=== PATIENT | male | born 1940 | race Caucasian/White ===

== ENCOUNTER 2018-07-29 15:06 | Inpatient (IN) ==
--- NOTE | 2018-07-29 15:37 | Emergency Department Note ---
Disposition Clinical Impression: Atrial flutter with rapid ventricular response, Non-ST elevation [place] (NSTEMI) Disposition: Admitted As Inpatient Condition: Fair Referrals: Abrahan Pleitez MD [Primary Care Provider] - Forms: ED Satisfaction Letter Time of Disposition: 16:12 Arrhythmia/Palpitations HPI - General Chief Complaint: ED Arrhythmia/Palpitations Stated Complaint: CP Time Seen by Provider: 07/29/18 15:12 Source: patient, family Mode of arrival: private vehicle Limitations: no limitations Nursing Notes Reviewed: Yes Vital Signs Reviewed: Yes - History of Present Illness HPI Narrative: Patient notes resting tachycardia for the past several days. He has a history of a supraventricular arrhythmia of unknown name. He takes a beta cristina as prescribed by Dr. Barboza, cardiology for this. He notes some mild chest discomfort radiating to his left arm. Symptoms have been present for 3 days. He also notes atraumatic left lower extremity swelling which is at baseline as well as baseline dyspnea due to end-stage oxygen-dependent COPD Pt Subjective Complaint: rapid heart beat, palpitations Onset (ago): day(s) Duration: constant Context: occurred during rest Arrhythmia History: other (History of uncertain arrhythmia) Associated symptoms: Reports: chest pain, shortness of breath (At baseline due to end-stage COPD) Treatments prior to arrival: beta-cristina - Related Data Home Medications Medication Instructions Recorded Confirmed ALPRAZolam [Xanax 1 MG Tablet] 1 mg PO HS 02/09/18 02/09/18 Budesonide Neb [Pulmicort Neb] 0.5 mg IH BID 02/09/18 02/09/18 Doxazosin Mesylate [Cardura] 2 mg PO DAILY 02/09/18 02/09/18 Formoterol Fumarate [Perforomist] 2 ml IH BID 02/09/18 02/09/18 Levalbuterol Neb [Xopenex Neb] 1 mg IH TID 02/09/18 02/09/18 Levalbuterol Tartrate 4 puff IH Q4H PRN 02/09/18 02/09/18 [Levalbuterol Tartrate Hfa] Lisinopril [Zestril] 10 mg PO DAILY 02/09/18 02/09/18 Metoprolol [Lopressor] 25 mg PO BID 02/09/18 02/09/18 Oxybutynin Chloride [Ditropan Xl] 5 mg PO DAILY 02/09/18 02/09/18 Oxygen 3 l IH DAILY 02/09/18 02/09/18 Pantoprazole Sodium 40 mg PO BID 02/09/18 02/09/18 Pravastatin Sodium [Pravachol] 40 mg PO DAILY 02/09/18 02/09/18 Ranitidine HCl [Zantac 75] 75 mg PO DAILY 02/09/18 02/09/18 Sucralfate [Carafate] 1 tab PO BID PRN 02/09/18 02/09/18 Tiotropium [place] [Spiriva 1 puff IH DAILY 02/09/18 02/09/18 Respimat] Previous Rx's Medication Instructions Recorded Docusate [Colace] 100 mg PO BID #60 capsule 02/10/18 Allergies Allergy/AdvReac Type Severity Reaction Status Date / Time No Known Allergies Allergy Verified 02/09/18 10:19 All systems ED: reviewed and negative except as stated. Constitutional: Reports: as per HPI Eyes: Reports: as per HPI ENT ED: Reports: as per HPI Cardiovascular: Reports: chest pain, palpitations Respiratory: Reports: dyspnea Gastrointestinal: Reports: other (Increased "gas") Genitourinary: Reports: as per HPI Musculoskeletal: Reports: other (LLE swelling - baseline) Integumentary: Reports: as per HPI Neurological: Reports: as per HPI Psychiatric: Reports: as per HPI Endocrine: Reports: as per HPI Allergic/Immunologic: Reports: as per HPI Past Medical History - Past Medical History Source: patient Medical history: Reports: COPD, coronary artery disease, GERD, hyperlipidemia, hypertension Surgical history: Reports: cataract, cholecystectomy Psychiatric history: Reports: anxiety, depression - Social History Smoking Status: Former smoker Smokeless Tobacco Status: No Alcohol use: Reports: rarely Drug use: Reports: none Physical Exam - General Limitations: no limitations General appearance: alert - Head Head exam: atraumatic - Eye Eye exam: Present: normal appearance - ENT ENT exam: normal exam, normal oropharynx - Neck Neck exam: Present: normal inspection, full ROM - Chest Chest inspection: Present: normal inspection, symmetric chest wall rise - Respiratory Respiratory exam: Present: other (Decreased breath sounds bilaterally. Mild expiratory rhonchi at bases posteriorly bilaterally) - Cardiovascular Cardiovascular exam: Present: tachycardia, irregular rhythm - Abdominal Exam Abdominal exam: Present: soft, Non-Tender, other (Umbilical hernia) - Rectal Exam Rectal exam: Present: deferred - Extremities Exam Extremities exam: Present: other (Asymmetric left lower extremity swelling- baseline per patient) - Neurological Exam Neurological exam: Present: alert, oriented X3, CN II-XII intact - Psychiatric Psychiatric exam: Present: normal affect, normal mood - Skin Skin exam: Present: warm, dry, intact Course Course Narrative: Patient presents with palpitations and a resting tachycardia. He states his dyspnea is at baseline. He does endorse chest discomfort. He takes a beta cristina but no anticoagulation, including aspirin due to previous history of bleeding. The patient otherwise appears in no acute distress on exam I did review the patient's Holter monitor transcribed report dated 10/2017. His ECG today represents a narrow complex tachycardia. P waves are visualized. This could represent sinus tachycardia versus atrial flutter with 2:1 conduction . I will initiate calcium channel blockade and reassess. - Reevaluation(s) Reevaluation #1: I did discuss this case with cardiology. The patient's rate has improved. He is resting comfortably. He is chest pain-free. All tests were discussed with him and his family member. It was mutually agreed not to start anticoagulation therapy at this time because the patient was taking aspirin previously and developed hemoptysis. I will defer to cardiology and admitting hospitalist input Time: 16:19 - Consultations Consultation #1: Dr. Judge, cardiology who has reviewed the patient's ED ECGs Vital Signs Temperature 98.2 F 07/29/18 15:23 Pulse Rate 136 07/29/18 15:23 Respiratory Rate 32 07/29/18 15:23 Blood Pressure 127/99 07/29/18 15:23 O2 Sat by Pulse Oximetry 100 07/29/18 15:23 Temperature 98.2 F 07/29/18 15:39 Pulse Rate 137 07/29/18 15:39 Respiratory Rate 28 07/29/18 15:39 Blood Pressure 132/90 07/29/18 15:39 O2 Sat by Pulse Oximetry 99 07/29/18 15:39 Oxygen Delivery Oxygen Delivery Nasal Cannula Arrhythmia/Palpitations - Medical Records Medical records reviewed: Yes I reviewed the patient's medical records. - Lab Data Lab results reviewed: Yes I reviewed the patient's lab results. Result diagrams: 07/29/18 15:44 07/29/18 15:44 Lab Results 07/29/18 07/29/18 07/29/18 Range/Units 15:44 15:44 15:44 WBC 6.8 (4.3-11.1) K/mcL RBC 4.73 (4.19-5.50) M/mcL Hgb 15.1 (12.9-16.9) g/dL Hct 45.9 (37.5-50.1) % MCV 97.0 (83.0-100.0) fL MCH 31.9 (28.0-33.3) pg MCHC 32.9 (31.6-35.5) g/dL RDW 13.1 (11.5-14.5) % Plt Count 140 (140-400) K/mcL MPV 9.8 (9.4-12.4) fL Immature Gran % 0.4 (0-4) % Seg Neutrophils % 69.1 % Lymphocytes % 18.5 % Monocytes % 11.1 % Eosinophils % 0.6 % Basophils % 0.3 % Neutrophils # 4.7 (1.6-8.9) K/mcL Lymphocytes # 1.3 (0.6-4.6) K/mcL Monocytes # 0.8 (0.0-1.3) K/mcL Eosinophils # 0.0 (0.0-0.6) K/mcL Basophils # 0.0 (0.0-0.2) K/mcL PT 12.2 H (9.4-12.1) Seconds INR 1.1 Sodium 140 (136-145) mEq/L Potassium 4.5 (3.5-5.1) mEq/L Chloride 101 (98-107) mEq/L Carbon Dioxide 36 H (23-29) mEq/L BUN 17 (8-23) mg/dL Creatinine 0.86 (0.70-1.30) mg/dL Est GFR ( Amer) > 60 (> 60) Est GFR (Non-Af Amer) > 60 (> 60) BUN/Creatinine Ratio 20 (6-26) Glucose 100 (70-105) mg/dL Calculated Osmolality 292 (280-300) Calcium 9.1 (8.6-10.3) mg/dL Magnesium (1.6-2.6) mg/dL Total Bilirubin 0.6 (0.3-1.0) mg/dL AST 14 (13-39) Units/L ALT 12 (7-52) Units/L Alkaline Phosphatase 74 (34-104) Units/L Troponin I 0.08 H* (< 0.04) ng/mL B-Natriuretic Peptide (Less than 100) pg/mL Serum Total Protein 6.3 L (6.4-8.9) g/dL Albumin 3.9 (3.5-5.7) g/dL Globulin 2.4 (2.4-3.5) g/dL Albumin/Globulin Ratio 1.6 (1.1-2.2) 07/29/18 07/29/18 Range/Units 15:44 15:44 WBC (4.3-11.1) K/mcL RBC (4.19-5.50) M/mcL Hgb (12.9-16.9) g/dL Hct (37.5-50.1) % MCV (83.0-100.0) fL MCH (28.0-33.3) pg MCHC (31.6-35.5) g/dL RDW (11.5-14.5) % Plt Count (140-400) K/mcL MPV (9.4-12.4) fL Immature Gran % (0-4) % Seg Neutrophils % % Lymphocytes % % Monocytes % % Eosinophils % % Basophils % % Neutrophils # (1.6-8.9) K/mcL Lymphocytes # (0.6-4.6) K/mcL Monocytes # (0.0-1.3) K/mcL Eosinophils # (0.0-0.6) K/mcL Basophils # (0.0-0.2) K/mcL PT (9.4-12.1) Seconds INR Sodium (136-145) mEq/L Potassium (3.5-5.1) mEq/L Chloride (98-107) mEq/L Carbon Dioxide (23-29) mEq/L BUN (8-23) mg/dL Creatinine (0.70-1.30) mg/dL Est GFR ( Amer) (> 60) Est GFR (Non-Af Amer) (> 60) BUN/Creatinine Ratio (6-26) Glucose (70-105) mg/dL Calculated Osmolality (280-300) Calcium (8.6-10.3) mg/dL Magnesium 2.3 (1.6-2.6) mg/dL Total Bilirubin (0.3-1.0) mg/dL AST (13-39) Units/L ALT (7-52) Units/L Alkaline Phosphatase (34-104) Units/L Troponin I (< 0.04) ng/mL B-Natriuretic Peptide 261 H (Less than 100) pg/mL Serum Total Protein (6.4-8.9) g/dL Albumin (3.5-5.7) g/dL Globulin (2.4-3.5) g/dL Albumin/Globulin Ratio (1.1-2.2) - Radiology Data Radiology results reviewed: Yes I reviewed the patient's radiology results. - EKG Data EKG attestation: Yes I reviewed and interpreted this EKG. EKG results narrative: Narrow complex tachycardia rate 137 HI 64 QRS 108 QTQTC to 95/46. No acute ST segment elevation. Study compared to previous dated 01/23/18 16:05: Repeat study shows narrow complex rhythm rate 107 QRS 111 QT/QTC 342/457. Study most consistent with atrial flutter with 2-1 conduction Critical Care Time Critical Care Time: Yes Total Critical Care Time: 30 Attestation: The high probability of a clinically significant, sudden or life threatening deterioration of the [] system(s) required my full and direct attention, intervention and personal management. The aggregate critical care time was [] minutes. This time is in addition to time spent performing reported procedures but includes the following: [] Data Review and interpretation [] Patient assessment and monitoring of vital signs [] Documentation [] Medication orders and management
[2018-07-29 16:00] LABS: Basophils % 0.3 %; Eosinophils % 0.6 %; Hematocrit 45.9 % (37.5-50.1); Hemoglobin 15.1 g/dL (12.9-16.9); Immature Granulocytes % 0.4 % (0-4); Lymphocytes # 1.3 K/mcL (0.6-4.6); Lymphocytes % 18.5 %; Mean Corpuscular HGB Conc 32.9 g/dL (31.6-35.5); Mean Corpuscular Hemoglobin 31.9 pg (28.0-33.3); Mean Platelet Volume 9.8 fL (9.4-12.4); Monocytes # 0.8 K/mcL (0.0-1.3); Monocytes % 11.1 %; Neutrophils # 4.7 K/mcL (1.6-8.9); Platelet Count 140 K/mcL (140-400); Red Blood Count 4.73 M/mcL (4.19-5.50); Red Cell Distribution Width 13.1 % (11.5-14.5); Segmented Neutrophils % 69.1 %
[2018-07-29 16:07] LABS: INR 1.1; Prothrombin Time 12.2 Seconds (9.4-12.1)
[2018-07-29 16:25] LABS: Alanine Aminotransferase 12 Units/L (7-52); Albumin 3.9 g/dL (3.5-5.7); Albumin/Globulin Ratio 1.6 (1.1-2.2); Alkaline Phosphatase 74 Units/L (34-104); Aspartate Amino Transferase 14 Units/L (13-39); BUN/Creatinine Ratio 20 (6-26); Bilirubin,Total 0.6 mg/dL (0.3-1.0); Blood Urea Nitrogen 17 mg/dL (8-23); Calcium 9.1 mg/dL (8.6-10.3); Carbon Dioxide 36 mEq/L (23-29); Chloride 101 mEq/L (98-107); Globulin 2.4 g/dL (2.4-3.5); Glucose 100 mg/dL (70-105); Osmolality,Calculated 292 (280-300); Potassium 4.5 mEq/L (3.5-5.1); Sodium 140 mEq/L (136-145); Total Protein 6.3 g/dL (6.4-8.9); Troponin I 0.08 ng/mL (< 0.04); eGFR For Non-African Americans > 60 (> 60)
[2018-07-29] MEDS ORDERED: traMADol 50 MG TABLET PO PRN (16:46)
[2018-07-29] MEDS ORDERED: Naloxone 0.4 MG/ML INJ IVP PRN (16:46)
[2018-07-29] MEDS ORDERED: Metoprolol XL (24 HR) Succ 50 MG TAB.ER.24H PO SCH (17:00)
--- NOTE | 2018-07-29 17:37 | Internal Med History&Physical ---
Date of Encounter: 07/29/18 Time of Encounter: 17:31 Internal Medicine - H&P: HPI Chief complaint: palpitation, light headedness Admitted From: Home Plans for Post Hospital Care: Home History of present illness: Mr. Diehl is a 78 year old male PMH of stage IV COPD on 3 litters of home O2, BETHANY, HTN, PSVT, HTN and HLD. Patient presented to the ED due to palpitation. Patient reports that for the past 3 days his heart rate has been in the 130s, he did not come to the ED sooner because he thought it would come down. He also reports that for the past 3 days he has been feeling light headed and short of breath at rest. denies chest pain but reports chest pressure, with pressure radiating to his left arm and jaw. Denies fever, chills, nausea, vomiting. Denies productive cough, fever/chills. Reports being compliant with his medications. Reports taking 2-3 cups of coffee a day. denies recreational drugs use. Past Med Surg Social Fam HX - Past Medical History Medical history: COPD, coronary artery disease, GERD, hyperlipidemia, hypertension Additional medical history: diverticulosis,. sleep apnea Psychiatric history: anxiety, depression - Past Surgical History Surgical History: cataract, cholecystectomy Additional surgical history: skin cancer, left knee, PROSTATE PROCEDURE - Social History Smoking Status: Former smoker Smokeless Tobacco Status: No Alcohol use: rarely Drug use: none - Family History Brother Living Status: - Additional Family History Additional family history: Rest of the family hx non-contributory Internal Medicine - H&P: Meds ALPRAZolam [Xanax 1 MG Tablet] 1 mg PO HS 02/09/18 [History] Budesonide Neb [Pulmicort Neb] 0.5 mg IH Q12H 02/09/18 [History] Doxazosin Mesylate [Cardura] 2 mg PO DAILY 02/09/18 [History] Formoterol Fumarate [Perforomist] 2 ml IH Q12H 02/09/18 [History] Levalbuterol Neb [Xopenex Neb] 1 mg IH Q4H PRN 02/09/18 [History] Lisinopril [Zestril] 10 mg PO DAILY 02/09/18 [History] Metoprolol [Lopressor] 25 mg PO BID 02/09/18 [History] Oxygen 2 l IH DAILY 02/09/18 [History] Pantoprazole Sodium 40 mg PO BID 02/09/18 [History] Pravastatin Sodium [Pravachol] 40 mg PO DAILY 02/09/18 [History] Tiotropium [place] [Spiriva Respimat] 1 puff IH Q12H 02/09/18 [History] Mirabegron [Myrbetriq] 50 mg PO DAILY 07/29/18 [History] Allergy/AdvReac Type Severity Reaction Status Date / Time No Known Allergies Allergy Verified 02/09/18 10:19 All Systems PM: A 10-system review of systems was performed and is negative for pertinent findings except as documented above in the HPI. - Constitutional Constitutional: weakness, no chills, no fever(s) - EENT Eyes: no blurry vision, no discharge, no irritation - Cardiovascular Cardiovascular ROS IM: dyspnea, dyspnea on exertion, irregular heart rhythm, lightheadedness, palpitations, no chest pain, no diaphoresis, no orthopnea, no paroxysmal nocturnal dyspnea, no syncope - Respiratory Respiratory: cough, no wheezing, no chest congestion, no excessive phlegm produc tion, no change in phlegm color - Gastrointestinal Gastrointestinal: no abdominal pain, no nausea, no vomiting - Genitourinary Genitourinary ROS male: no dysuria, no urinary frequency, no urinary hesitancy - Musculoskeletal Musculoskeletal ROS IM: no atrophy, no back pain, no stiffness - Integumentary Integumentary IM: no erythema, no sores - Neurological Neurological ROS: no confusion, no dizziness, no headache(s) - Psychiatric Psychiatric: no anxiety, no hopelessness, no irritability - Endocrine Endocrine IM: no cold intolerance, no excessive sweating - Hematologic/Lymphatic Hematologic/Lymphatic: no easy bruising, no lymphadenopathy - Allergic/Immunologic Allergic/Immunologic: no GI upset with certain foods - Constitutional Vitals: Temp Pulse Resp BP Pulse Ox 98.2 F 137 28 132/90 99 07/29/18 15:39 07/29/18 15:39 07/29/18 15:39 07/29/18 15:39 07/29/18 15:39 Exam: Vitals: Reviewed General: Alert and oriented x4. In mild distress due to shortness of breath Skin: Normal color, no rash, no lesions. HEENT: EOM, pupils equal, round and reactive. Cardiovascular: tachycardic irregularly irregular, normal S1 & S2, no rubs, murmurs or gallops. Lungs: Decreased breath sounds b/l, no wheezes or crackles. Abdomen: Obese, soft, non-tender, no rigidity. Extremities: 1+ pitting edema in the left foot. Neurological: Normal cognition and motor skills. Rest of the physical exam is non contributory Internal Med - H&P Results - Labs CBC & Chem 7: 07/29/18 15:44 07/29/18 15:44 Labs: Short CBC 07/29/18 Range/Units 15:44 WBC 6.8 (4.3-11.1) K/mcL Hgb 15.1 (12.9-16.9) g/dL Hct 45.9 (37.5-50.1) % Plt Count 140 (140-400) K/mcL Neutrophils # 4.7 (1.6-8.9) K/mcL BMP 07/29/18 15:44 Sodium 140 Potassium 4.5 Chloride 101 Carbon Dioxide 36 H BUN 17 Creatinine 0.86 Glucose 100 Calcium 9.1 Cardiac Enzymes 07/29/18 Range/Units 15:44 Troponin I 0.08 H* (< 0.04) ng/mL Liver Function 07/29/18 Range/Units 15:44 Total Bilirubin 0.6 (0.3-1.0) mg/dL AST 14 (13-39) Units/L ALT 12 (7-52) Units/L Alkaline Phosphatase 74 (34-104) Units/L Albumin 3.9 (3.5-5.7) g/dL - Impressions ITS Impressions Chest X-Ray 07/29/18 15:24 IMPRESSION: 1. No active pulmonary disease. D/ / Rishabh Dye MD / Rishabh Dye MD Interpreting Provider: Rishabh Dye MD - Diagnostic Studies Chest x-ray Status: image reviewed by me (no acute abnormalities ) - Assessment and Plan (1) Atrial flutter with rapid ventricular response Current Visit: Yes Status: Acute Assessment and plan: patient reports having HR in the 130s for the past 3 days associated with light headedness and shortness of breath. ELIEL?DS?-VASc Score 3 Plan started on a diltiazem drip titrate per protocol TSH, reflex to T4 ordered metoprolol increased to 50mg/PO daily Not on full dose anticoagulation due to a Hx of bleeding Aspirin 81mg/PO daily cardiology has been consulted, recommendations appreciated TTE ordered to evaluate for valvular abnormalities (2) BETHANY on CPAP Current Visit: Yes Status: Acute Assessment and plan: nocturnal BiPap ordered (3) COPD (chronic obstructive pulmonary disease) Current Visit: Yes Status: Chronic Assessment and plan: decreased breath sound b/l, no wheezing on auscultation. continue O2 by nasal cannula, titrate for O2 >92% bronchodilators Q4RT PRN will resume spiriva, home dose Qualifiers: COPD type: unspecified COPD Qualified Code(s): J44.9 - Chronic obstructive pulmonary disease, unspecified (4) Chronic hypoxemic respiratory failure Current Visit: Yes Status: Acute Assessment and plan: plan of care as above (5) HLD (hyperlipidemia) Current Visit: Yes Status: Chronic Assessment and plan: patient on pravastatin. will continue home medication Qualifiers: Hyperlipidemia type: unspecified Qualified Code(s): E78.5 - Hyperlipidemia, unspecified (6) HTN (hypertension) Current Visit: Yes Status: Chronic Assessment and plan: BP is well controlled on metoprolol. furosemide 20mg/IV BID added. Qualifiers: Hypertension type: unspecified Qualified Code(s): I10 - Essential (primary) hypertension (7) DVT prophylaxis Current Visit: Yes Status: Acute Assessment and plan: started on heparin SubQ Q8HRs (8) Elevated troponin Current Visit: Yes Status: Acute Assessment and plan: most likely demand ischemia in the setting of Atrial flutter serial trops ordered if trops continue trending up will start the patient on a heparin drip cardiology recommendations appreciated. monitoring manager - Time Spent With Patient Total time spent is greater than 50% in coordination of care (as documented) at patient's floor/unit and/or counseling patient: Greater than 35 minutes (45)
[2018-07-29] MEDS: *HR* Heparin 5,000 UNIT/ML VIAL SQ SCH ×2 (18:48→22:48)
[2018-07-29] MEDS: Levalbuterol Neb 0.63 MG/3 ML IH PRN (20:54)
[2018-07-29] MEDS ORDERED: Furosemide 20 MG/2 ML VIAL IVP SCH (21:00)
[2018-07-29] MEDS ORDERED: FORMOTEROL FUMARATE IH SCH (21:00)
[2018-07-29] MEDS: Budesonide Neb 0.5 MG/2 ML IH SCH (21:09)
[2018-07-29] MEDS: Tiotropium 18 MCG inhalation IH SCH (21:09)
[2018-07-29] MEDS: ALPRAZolam 1 MG TABLET PO SCH (23:07)
[2018-07-30] MEDS: *HR* Heparin 5,000 UNIT/ML VIAL SQ SCH ×3 (05:21→21:32)
[2018-07-30 05:35] LABS: Basophils % 0.3 %; Eosinophils # 0.1 K/mcL (0.0-0.6); Eosinophils % 0.9 %; Hematocrit 43.9 % (37.5-50.1); Hemoglobin 14.4 g/dL (12.9-16.9); Immature Granulocytes % 0.3 % (0-4); Lymphocytes # 2.1 K/mcL (0.6-4.6); Lymphocytes % 33.2 %; Mean Corpuscular HGB Conc 32.8 g/dL (31.6-35.5); Mean Corpuscular Hemoglobin 32.2 pg (28.0-33.3); Mean Corpuscular Volume 98.2 fL (83.0-100.0); Monocytes # 0.7 K/mcL (0.0-1.3); Neutrophils # 3.5 K/mcL (1.6-8.9); Platelet Count 146 K/mcL (140-400); Red Blood Count 4.47 M/mcL (4.19-5.50); Red Cell Distribution Width 13.2 % (11.5-14.5); Segmented Neutrophils % 54.3 %
[2018-07-30 05:44] LABS: BUN/Creatinine Ratio 17 (6-26); Blood Urea Nitrogen 16 mg/dL (8-23); Calcium 8.9 mg/dL (8.6-10.3); Carbon Dioxide 37 mEq/L (23-29); Chloride 99 mEq/L (98-107); Glucose 105 mg/dL (70-105); Magnesium 2.1 mg/dL (1.6-2.6); Osmolality,Calculated 296 (280-300); Phosphorous 3.1 mg/dL (2.7-4.5); Potassium 3.9 mEq/L (3.5-5.1); Sodium 142 mEq/L (136-145); eGFR For Non-African Americans > 60 (> 60)
[2018-07-30] MEDS: Levalbuterol Neb 0.63 MG/3 ML IH PRN ×3 (07:51→20:43)
[2018-07-30 07:56] LABS: ABG Base Excess 9 mEq/L (-2 to 3); ABG HCO3 36 mEq/L (21-27); ABG Oxygen Saturation 99 % (95-98); ABG PCO2 53 mmHg (35-45); ABG PH 7.43 pH Units (7.32-7.45); ABG PO2 121 mmHg (85-104); ABG TCO2 37 mEq/L (20-26)
[2018-07-30] MEDS: FORMOTEROL FUMARATE IH SCH ×2 (07:56→20:43)
[2018-07-30] MEDS: Budesonide Neb 0.5 MG/2 ML IH SCH ×2 (07:58→20:43)
[2018-07-30] MEDS ORDERED: Metoprolol XL (24 HR) Succ 50 MG TAB.ER.24H PO SCH (09:00)
[2018-07-30] MEDS: Aspirin Enteric Coated 81 MG Tablet PO SCH (09:24)
[2018-07-30] MEDS: Metoprolol XL (24 HR) Succ 50 MG TAB.ER.24H PO SCH (09:24)
--- NOTE | 2018-07-30 09:26 | Internal Med Progress Note ---
Hospitalist Progress Note - Encounter Date of Encounter: 07/30/18 Time of Encounter: 09:23 - Subjective Interval History: I have seen and evaluated the patient at bedside. Patient reports feeling slightly better today, does not feel as lightheaded as yesterday, reports improvement in his shortness of breath, denies chest pain, nausea or vomiting. denies abdominal pain. - Exam Vitals: Temp Pulse Resp BP Pulse Ox 98.2 F 107 17 100/75 98 07/30/18 07:28 07/30/18 07:28 07/30/18 07:28 07/30/18 07:28 07/30/18 07:28 Exam: Vitals: Reviewed General: Alert and oriented x4. In no distress Cardiovascular: tachycardic irregularly irregular, normal S1 & S2, no rubs, murmurs or gallops. Lungs: Decreased breath sounds b/l, mild expiratory wheezes on the right lung, no rales or crackles. Abdomen: Obese, soft, non-tender, no rigidity. NABS in all 4 quadrants Extremities: 1+ pitting edema in the left foot. Neurological: Normal cognition Rest of the physical exam is non contributory - Assessment and Plan (1) Atrial flutter with rapid ventricular response Current Visit: Yes Status: Acute Assessment and Plan: HR sub-optimally controlled. patient on a cardizem drip, titrated per protocol for HR <100 will increase metoprolol to 100mg/PO daily if BP tolerates it cardiology recommendations appreciated not on full dose anticoagulation due to Hx of GI bleed on aspirin 81mg for secondary stroke prevention. TTE ordered (2) BETHANY on CPAP Current Visit: Yes Status: Acute Assessment and Plan: patient to wear his home BiPaP (3) COPD (chronic obstructive pulmonary disease) Current Visit: Yes Status: Chronic Assessment and Plan: mild scattered wheezing on the right lung, both lungs with decrease air entry, left lung clear to auscultation will continue bronchodilators Q4RT PRN on spiriva incentive spirometry O2 by nasal cannula ABG ordered budesonide nebs Q12RT jordan (4) Chronic hypoxemic respiratory failure Current Visit: Yes Status: Acute Assessment and Plan: plan of care as above (5) HLD (hyperlipidemia) Current Visit: Yes Status: Chronic Assessment and Plan: on simvastatin 40mg/PO daily (6) HTN (hypertension) Current Visit: Yes Status: Chronic Assessment and Plan: BP running in the 90s and low 100s. patient on a cardizem drip. discontinue furosemide. continue metoprolol. will continue to monitor (7) Elevated troponin Current Visit: Yes Status: Acute Assessment and Plan: possible due to demand ischemia from atrial flutter. trops plateu 0.09. patient with no chest pain or discomfort. DVT Prophylaxis: On heparin SubQ. - Summary of Assessment and Plan Summary of Assessment and Plan: Patient to remain in the hospital due to A. fib with RVR, on a Cardizem drip. - Time Spent with Patient Total time spent is greater than 50% in coordination of care (as documented) at patient's floor/unit and/or counseling patient: Greater than 35 minutes (45) Plan of Care Discussed with: patient (his daughter and the nurse.) Internal Medicine: Result - Labs CBC & Chem 7: 07/30/18 04:42 07/30/18 04:42 Labs: Short CBC 07/29/18 07/30/18 Range/Units 15:44 04:42 WBC 6.8 6.5 (4.3-11.1) K/mcL Hgb 15.1 14.4 (12.9-16.9) g/dL Hct 45.9 43.9 (37.5-50.1) % Plt Count 140 146 (140-400) K/mcL Neutrophils # 4.7 3.5 (1.6-8.9) K/mcL BMP 07/29/18 07/30/18 15:44 04:42 Sodium 140 142 Potassium 4.5 3.9 Chloride 101 99 Carbon Dioxide 36 H 37 H BUN 17 16 Creatinine 0.86 0.96 Glucose 100 105 Calcium 9.1 8.9 Cardiac Enzymes 07/29/18 07/29/18 07/29/18 Range/Units 15:44 17:27 23:05 Troponin I 0.08 H* 0.09 H* 0.09 H* (< 0.04) ng/mL 07/30/18 Range/Units 04:42 Troponin I 0.09 H* (< 0.04) ng/mL Liver Function 07/29/18 Range/Units 15:44 Total Bilirubin 0.6 (0.3-1.0) mg/dL AST 14 (13-39) Units/L ALT 12 (7-52) Units/L Alkaline Phosphatase 74 (34-104) Units/L Albumin 3.9 (3.5-5.7) g/dL - ABG Interpretation ABG results: ABG ABG pH 7.43 pH Units (7.32-7.45) 07/30/18 07:47 ABG pCO2 53 mmHg (35-45) H 07/30/18 07:47 ABG pO2 121 mmHg (85-104) H 07/30/18 07:47 ABG O2 Saturation 99 % (95-98) H 07/30/18 07:47 PT/INR, D-dimer PT 12.2 Seconds (9.4-12.1) H 07/29/18 15:44 - Impressions Impressions Chest X-Ray 07/29/18 15:24 IMPRESSION: 1. No active pulmonary disease. D/ / Rishabh Dye MD / Rishabh Dye MD Interpreting Provider: Rishabh Dye MD Consult Discharge Plan - Plan Referrals: Abrahan Pleitez MD [Primary Care Provider] - (3) COPD (chronic obstructive pulmonary disease) Qualifiers: COPD type: unspecified COPD Qualified Code(s): J44.9 - Chronic obstructive pulmonary disease, unspecified (5) HLD (hyperlipidemia) Qualifiers: Hyperlipidemia type: unspecified Qualified Code(s): E78.5 - Hyperlipidemia, unspecified (6) HTN (hypertension) Qualifiers: Hypertension type: unspecified Qualified Code(s): I10 - Essential (primary) hypertension
--- NOTE | 2018-07-30 10:19 | Electrocardiograph Report ---
[place] [id number] Test Date: 2018-07-29 Pat Name: Omkar Diehl Department: [id number] Room: 2N1 Gender: M Unit Aide Tech: : 1940 Requested By: Kristian Townsend Order Number: [id number] Reading MD: Armen Barboza Measurements Intervals Bernard Rate: 137 P: 170 PA: 64 QRS: 31 QRSD: 108 T: 46 QT: 295 QTc: 446 Interpretive Statements Possible atrial tachycardia/flutter with RVR Electronically Signed On 07-30-2018 10:19:21 EDT by Armen Barboza
--- NOTE | 2018-07-30 10:19 | Electrocardiograph Report ---
[place] [id number] Test Date: 2018-07-29 Pat Name: Omkar Diehl Department: EXAM10 Room: 2N1 Gender: M Family Service Counselor: : 1940 Requested By: Kristian Townsend Order Number: [id number] Reading MD: Armen Barboza Measurements Intervals [place] Rate: 107 P: VT: QRS: 18 QRSD: 111 T: 70 QT: 342 QTc: 457 Interpretive Statements Atrial flutter with RVR Electronically Signed On 07-30-2018 10:18:19 EDT by Armen Barboza
--- NOTE | 2018-07-30 11:14 | Cardiology Consult Note ---
<Jeronimo Schwartz - Last Filed: 07/30/18 12:20> Date of Encounter: 07/30/18 Time of Encounter: 11:08 Assessment and Plan (1) Atrial flutter with rapid ventricular response Current Visit: Yes Status: Acute Pt presents with elevated HR in the setting of COPD exacerbation. On initial presentation he is seen to have atrial tachycardia. Telemetry review shows sinus tachycardia converting to atrial flutter with RVR. HR 130's. No prior history of atrial flutter. Agree with IV cardizem titration to keep HR 100 bpm or less. Metoprolol increased by primary team. In regards to fpc AC he c/o significant hemoptysis with recent addition of asa 81 mg daily. He also had hemoptysis with asa six years ago with pulmonary work-up. He would not like to try bryologist AC. Increased risk of stroke reviewed. TTE pending. TSH 3.177. Continue attempt at rate control. He is not a candidate or rhythm control. (2) COPD (chronic obstructive pulmonary disease) Current Visit: Yes Status: Chronic Severe COPD with exacerbation this admit. Management per IM. Qualifiers: COPD type: unspecified COPD Qualified Code(s): J44.9 - Chronic obstructive pulmonary disease, unspecified (3) Elevated troponin Current Visit: Yes Status: Acute Mild adynamic troponin elevation at 0.08 and 0.09x3. No acute ST changes on EKG. Patient did have mild left sided chest discomfort for two days. May be secondary to tachycardia and COPD exacerbation. LHC in 2015 showed mild non-obstructive CAD. TTE ordered to evaluate further. Discussion w patient/family: The assessment and plan as outlined above was discussed with the patient and/or family members who expressed understanding and agreement. All questions were answered. Thank you for involving us in the care of your patient. Please call with any questions. History of Present Illness Consult date: 07/30/18 Requesting physician: Boubacar Bower Consult reason: atrial flutter Chief complaint: SOB, elevated HR History of present illness: Mr. Diehl is a 78 year old male with past medical history significant for paroxysmal atrial tachycardia,PVCs, mild non-obstructive CAD on LHC, BETHANY on bipap, essential HTN, and hemoptysis who presented with c/o persistent elevated HR in the 130's. He was recommended to go to the ED by his transfer car operator. He also admits to increased SOB. C/o two days of left sided chest pressure while at rest. He is being treated for COPD exacerbation. His initial EKG showed atrial tachycardia. On telemetry overnight he was noted to convert to atypical atrial flutter. He was placed on cardizem gtt. On my exam he is pain free. He states he is breathing better. HR remains elevated. Past Med Surg Social Fam HX - Past Medical History Medical history: COPD, coronary artery disease, GERD, hyperlipidemia, hypertension Additional medical history: diverticulosis,. sleep apnea Psychiatric history: anxiety, depression - Past Surgical History Surgical History: cataract, cholecystectomy Additional surgical history: skin cancer, left knee, PROSTATE PROCEDURE - Social History Smoking Status: Former smoker Smokeless Tobacco Status: No Alcohol use: rarely Drug use: none - Family History Brother Living Status: Cause of : CANCER Hx Family Cardiac Disorders: Yes Hx Family Cancer: Yes Hx Family GI Disorders: Yes Hx Family Medical Disorders: Yes Medications and Allergies ALPRAZolam [Xanax 1 MG Tablet] 1 mg PO HS 02/09/18 [History] Budesonide Neb [Pulmicort Neb] 0.5 mg IH Q12H 02/09/18 [History] Doxazosin Mesylate [Cardura] 2 mg PO DAILY 02/09/18 [History] Formoterol Fumarate [Perforomist] 2 ml IH Q12H 02/09/18 [History] Levalbuterol Neb [Xopenex Neb] 1 mg IH Q4H PRN 02/09/18 [History] Lisinopril [Zestril] 10 mg PO DAILY 02/09/18 [History] Metoprolol [Lopressor] 25 mg PO BID 02/09/18 [History] Oxygen 2 l IH DAILY 02/09/18 [History] Pantoprazole Sodium 40 mg PO BID 02/09/18 [History] Pravastatin Sodium [Pravachol] 40 mg PO DAILY 02/09/18 [History] Tiotropium Bradley [Spiriva Respimat] 1 puff IH Q12H 02/09/18 [History] Mirabegron [Myrbetriq] 50 mg PO DAILY 07/29/18 [History] Allergy/AdvReac Type Severity Reaction Status Date / Time No Known Allergies Allergy Verified 02/09/18 10:19 All Systems Review: The remainder of the systems were reviewed and are negative Physical Examination Vital Signs, Last 4 Hours Temp Pulse Resp BP Pulse Ox 07/30/18 07:28 98.2 F 107 17 100/75 98 General: Conversant, No Apparent Distress HEENT: Atraumatic, Normocephaly, Mucus Membranes Moist Neck: No JVD, Normal carotid pulses Cardiac: Other (Irregular) Lungs: Other (Scattered wheezes throughout. Decreased lung sounds. ) Neuro: Alert and responsive, No focal deficits noted Abdomen: Soft, Non-Tender Skin: No rashes noted on visualized skin Musculoskeletal: No Chest Wall Tenderness Extremities: No Clubbing, No Cyanosis, No Edema, Normal Pulses, Other (Redness noted in LLE is chronic per daughter.) Results 07/30/18 04:42 07/30/18 04:42 Lab Results 07/29/18 07/29/18 07/29/18 15:44 15:44 15:44 WBC 6.8 Hgb 15.1 Hct 45.9 Plt Count 140 INR 1.1 Sodium 140 Potassium 4.5 Chloride 101 Carbon Dioxide 36 H BUN 17 Creatinine 0.86 Glucose 100 Calcium 9.1 Magnesium Total Bilirubin 0.6 AST 14 ALT 12 Alkaline Phosphatase 74 Troponin I 0.08 H* B-Natriuretic Peptide TSH 07/29/18 07/29/18 07/29/18 15:44 15:44 17:27 WBC Hgb Hct Plt Count INR Sodium Potassium Chloride Carbon Dioxide BUN Creatinine Glucose Calcium Magnesium 2.3 Total Bilirubin AST ALT Alkaline Phosphatase Troponin I B-Natriuretic Peptide 261 H TSH 3.177 07/29/18 07/29/18 07/30/18 17:27 23:05 04:42 WBC 6.5 Hgb 14.4 Hct 43.9 Plt Count 146 INR Sodium Potassium Chloride Carbon Dioxide BUN Creatinine Glucose Calcium Magnesium Total Bilirubin AST ALT Alkaline Phosphatase Troponin I 0.09 H* 0.09 H* B-Natriuretic Peptide TSH 07/30/18 07/30/18 04:42 04:42 WBC Hgb Hct Plt Count INR Sodium 142 Potassium 3.9 Chloride 99 Carbon Dioxide 37 H BUN 16 Creatinine 0.96 Glucose 105 Calcium 8.9 Magnesium 2.1 Total Bilirubin AST ALT Alkaline Phosphatase Troponin I 0.09 H* B-Natriuretic Peptide TSH - Imaging and Cardiology Stress Test: report reviewed Echo: report reviewed Cardiac cath: report reviewed - EKG Interpretation EKG results cardiology: personally reviewed Consult Discharge Plan - Plan Referrals: Abrahan Pleitez MD [Primary Care Provider] - <Royal Judge - Last Filed: 07/30/18 15:56> Date of Encounter: 07/30/18 - Attending Attestation I have personally performed a face to face evaluation on this patient. I have reviewed and agree with the documented findings and care plan as documented by the SLEEP LAB TECHNOLOGIST. History and Exam by me shows: 78-year-old gentleman with history of end-stage COPD, known paroxysmal SVT, presenting with palpitations. EKG shows atrial tachycardia, however telemetry review suggests multifocal atrial tachycardia versus atypical atrial flutter. Patient however has had episodes of hemoptysis on aspirin. She is therefore not a candidate for chronic oral anticoagulation if in fact he has atrial flutter. We will therefore focus on rate control, by weaning of IV Cardizem and transitioning to oral. He is to follow-up with his PCP and counselor marriage and family regarding end-stage COPD and goals of care. Thanks, Royal Judge MD FACC Assessment and Plan Discussion w patient/family: The assessment and plan as outlined above was discussed with the patient and/or family members who expressed understanding and agreement. All questions were answered. Thank you for involving us in the care of your patient. Please call with any questions. History of Present Illness History of present illness: Mr. Diehl is a 78 year old male All Systems Review: The remainder of the systems were reviewed and are negative Physical Examination Vital Signs, Last 4 Hours Temp Pulse Resp BP Pulse Ox 07/30/18 12:03 98.4 F 120 18 107/73 98 Results 07/30/18 04:42 07/30/18 04:42 Lab Results 07/29/18 07/29/18 07/29/18 15:44 15:44 15:44 WBC 6.8 Hgb 15.1 Hct 45.9 Plt Count 140 INR 1.1 Sodium 140 Potassium 4.5 Chloride 101 Carbon Dioxide 36 H BUN 17 Creatinine 0.86 Glucose 100 Calcium 9.1 Magnesium Total Bilirubin 0.6 AST 14 ALT 12 Alkaline Phosphatase 74 Troponin I 0.08 H* B-Natriuretic Peptide TSH 07/29/18 07/29/18 07/29/18 15:44 15:44 17:27 WBC Hgb Hct Plt Count INR Sodium Potassium Chloride Carbon Dioxide BUN Creatinine Glucose Calcium Magnesium 2.3 Total Bilirubin AST ALT Alkaline Phosphatase Troponin I B-Natriuretic Peptide 261 H TSH 3.177 07/29/18 07/29/18 07/30/18 17:27 23:05 04:42 WBC 6.5 Hgb 14.4 Hct 43.9 Plt Count 146 INR Sodium Potassium Chloride Carbon Dioxide BUN Creatinine Glucose Calcium Magnesium Total Bilirubin AST ALT Alkaline Phosphatase Troponin I 0.09 H* 0.09 H* B-Natriuretic Peptide [facility] 07/30/18 07/30/18 04:42 04:42 WBC Hgb Hct Plt Count INR Sodium 142 Potassium 3.9 Chloride 99 Carbon Dioxide 37 H BUN 16 Creatinine 0.96 Glucose 105 Calcium 8.9 Magnesium 2.1 Total Bilirubin AST ALT Alkaline Phosphatase Troponin I 0.09 H* B-Natriuretic Peptide [facility]
[2018-07-30] MEDS: predniSONE 20 MG TABLET PO SCH (12:14)
[2018-07-30] MEDS ORDERED: Diltiazem CD (24hr) 120 MG CAPSULE PO SCH (13:00)
[2018-07-30] MEDS: ALPRAZolam 1 MG TABLET PO SCH (19:53)
[2018-07-30] MEDS: Tiotropium 18 MCG inhalation IH SCH (21:07)
[2018-07-31] MEDS: *HR* Heparin 5,000 UNIT/ML VIAL SQ SCH ×3 (05:10→22:49)
[2018-07-31 05:33] LABS: BUN/Creatinine Ratio 17 (6-26); Blood Urea Nitrogen 15 mg/dL (8-23); Carbon Dioxide 33 mEq/L (23-29); Chloride 102 mEq/L (98-107); Glucose 141 mg/dL (70-105); Osmolality,Calculated 293 (280-300); Phosphorous 2.9 mg/dL (2.7-4.5); Sodium 140 mEq/L (136-145); eGFR For Non-African Americans > 60 (> 60)
[2018-07-31] MEDS: Aspirin Enteric Coated 81 MG Tablet PO SCH (09:10)
[2018-07-31] MEDS: Metoprolol XL (24 HR) Succ 50 MG TAB.ER.24H PO SCH ×2 (09:10→10:29)
[2018-07-31] MEDS: Diltiazem CD (24hr) 240 MG CAPSULE PO SCH ×3 (09:10→09:32)
[2018-07-31] MEDS: predniSONE 20 MG TABLET PO SCH (09:10)
[2018-07-31] MEDS: FORMOTEROL FUMARATE IH SCH ×2 (09:18→21:14)
[2018-07-31] MEDS: Levalbuterol Neb 0.63 MG/3 ML IH PRN ×3 (09:18→21:11)
[2018-07-31] MEDS: Budesonide Neb 0.5 MG/2 ML IH SCH ×2 (09:18→21:16)
--- NOTE | 2018-07-31 09:30 | Internal Med Progress Note ---
Hospitalist Progress Note - Encounter Date of Encounter: 07/31/18 Time of Encounter: 09:27 - Subjective Interval History: I have seen and evaluated the patient at bedside. patient reports chest tightness, denies nausea, vomiting or abdominal pain. denies light headedness. - Exam Vitals: Temp Pulse Resp BP Pulse Ox 98.4 F 106 17 93/73 97 07/31/18 07:27 07/31/18 07:27 07/31/18 07:27 07/31/18 07:27 07/31/18 07:27 Exam: Vitals: Reviewed General: Alert and oriented x4. In no distress Cardiovascular: tachycardic, irregularly irregular, normal S1 & S2, no rubs, murmurs or gallops. Lungs: Decreased breath sounds b/l, mild b/l expiratory wheezes, no rales or crackles. Abdomen: Obese, soft, non-tender, no rigidity. NABS in all 4 quadrants Extremities: 1+ pitting edema in the left foot. Neurological: No focal neurological abnormalities Rest of the physical exam is non contributory - Assessment and Plan (1) Atrial flutter with rapid ventricular response Current Visit: Yes Status: Acute Assessment and Plan: HR sub-optimally controlled. Plan continue cardizem drip, titrate per protocol for HR <100. Titrate off for SBP <100 consider digoxin, if cardizem cannot be titrated up. cardizem 120mg/PO daily on metoprolol 50mg/PO daily no on full dose anticoagulation due to Hx of epistaxis cardiology recommendations appreciated On aspirin 81 mg by mouth daily. (2) BETHANY on CPAP Current Visit: Yes Status: Acute Assessment and Plan: patient to wear his home BiPaP (3) COPD (chronic obstructive pulmonary disease) Current Visit: Yes Status: Chronic Assessment and Plan: patient with mild expiratory wheezing b/l. Plan started a steroid trial with prednisone 40mg/PO daily Continue bronchodilators, on levalbuterol On budesonide nebs and spiriva. On 3 litter of O2 by nasal cannula, home dose. (4) Chronic hypoxemic respiratory failure Current Visit: Yes Status: Acute Assessment and Plan: Continue oxygen by nasal cannula, titrate for O2 sat more than 92% (5) HLD (hyperlipidemia) Current Visit: Yes Status: Chronic Assessment and Plan: Continue simvastatin 40 mg by mouth at bedtime. (6) HTN (hypertension) Current Visit: Yes Status: Chronic Assessment and Plan: Blood pressure has been running in the low 90s, patient on a Cardizem drip and Cardizem by mouth for rate control. will continue to monitor. (7) Elevated troponin Current Visit: Yes Status: Ruled-out DVT Prophylaxis: On heparin subQ. - Summary of Assessment and Plan Summary of Assessment and Plan: Patient to remain in the hospital due to atrial flutter, on a Cardizem drip. - Time Spent with Patient Total time spent is greater than 50% in coordination of care (as documented) at patient's floor/unit and/or counseling patient: Greater than 35 minutes (45) Plan of Care Discussed with: patient (her daugther and the nurse.) Internal Medicine: Result - Labs CBC & Chem 7: 07/30/18 04:42 07/31/18 04:40 Labs: BMP 07/31/18 04:40 Sodium 140 Potassium 4.0 Chloride 102 Carbon Dioxide 33 H BUN 15 Creatinine 0.89 Glucose 141 H Calcium 9.0 - ABG Interpretation ABG results: ABG ABG pH 7.43 pH Units (7.32-7.45) 07/30/18 07:47 ABG pCO2 53 mmHg (35-45) H 07/30/18 07:47 ABG pO2 121 mmHg (85-104) H 07/30/18 07:47 ABG O2 Saturation 99 % (95-98) H 07/30/18 07:47 PT/INR, D-dimer PT 12.2 Seconds (9.4-12.1) H 07/29/18 15:44 Consult Discharge Plan - Plan Referrals: Abrahan Pleitez MD [Primary Care Provider] - (3) COPD (chronic obstructive pulmonary disease) Qualifiers: COPD type: unspecified COPD Qualified Code(s): J44.9 - Chronic obstructive pulmonary disease, unspecified (5) HLD (hyperlipidemia) Qualifiers: Hyperlipidemia type: unspecified Qualified Code(s): E78.5 - Hyperlipidemia, unspecified (6) HTN (hypertension) Qualifiers: Hypertension type: unspecified Qualified Code(s): I10 - Essential (primary) hypertension
[2018-07-31] MEDS ORDERED: 0.9 % Sodium Chloride 250 ML IVC ONE (09:32)
[2018-07-31] MEDS ORDERED: *HR* Digoxin 0.5 MG/2 ML AMPUL IVP ONE (13:19)
[2018-07-31] MEDS ORDERED: Diltiazem CD (24hr) 120 MG CAPSULE PO SCH (13:30)
--- NOTE | 2018-07-31 13:34 | Cardiology Progress Note ---
Date of Encounter: 07/31/18 Time of Encounter: 13:32 Assessment and Plan (1) Atrial flutter with rapid ventricular response Current Visit: Yes Status: Acute Pt presents with elevated HR in the setting of COPD exacerbation. On initial presentation he is seen to have atrial tachycardia. Telemetry review shows sinus tachycardia converting to atrial flutter with RVR. HR 130's. Remains in atrial flutter. No prior history of atrial flutter. TTE was a poor study due to tachycardia. Repeat when HR improved. TSH 3.177. Current tx: Metoprolol 50 mg daily increased from home dose. Cardizem 120 mg daily started with titration of cardizem gtt. D/t low blood pressure cardizem oral held although he is still on cardizem 10 mg Hr. Plan: Will have nurse give oral cardizem and d/c cardizem gtt. Unable to titrate with low blood pressure. Discussed with Dr Jimenes, we will give IV digoxin load today. 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 He also had hemoptysis with asa six years ago with pulmonary work-up. He would not like to try snf AC. Increased risk of stroke reviewed. Continue attempt at rate control. He is not a candidate for rhythm control. (2) COPD (chronic obstructive pulmonary disease) Current Visit: Yes Status: Chronic Severe COPD with exacerbation this admit. Management per IM. Qualifiers: COPD type: unspecified COPD Qualified Code(s): J44.9 - Chronic obstructive pulmonary disease, unspecified (3) Elevated troponin Current Visit: Yes Status: Ruled-out Mild adynamic troponin elevation at 0.08 and 0.09x3. No acute ST changes on EKG. Patient did have mild left sided chest discomfort for two days. May be secondary to tachycardia and COPD exacerbation. C in 2015 showed mild non-obstructive CAD. TTE ordered to evaluate further. Discussion w patient/family: The assessment and plan as outlined above was discussed with the patient and/or family members who expressed understanding and agreement. All questions were answered. Thank you for involving us in the care of your patient. Please call with any questions. Subjective Principal diagnosis: atrial flutter Interval history: Mr. Diehl states he is feeling okay today. SOB near baseline. Noted to still have wheezing. Objective Vital Signs, Last 4 Hours Temp Pulse Resp BP Pulse Ox 07/31/18 10:38 98.2 F 107 16 104/72 97 07/31/18 10:31 100/82 General: Conversant, No Apparent Distress HEENT: Atraumatic, Normocephaly, Mucus Membranes Moist Neck: No JVD, Normal carotid pulses Cardiac: Other (Irregular) Lungs: Other (expiratory wheezes.) Neuro: Alert and responsive, No focal deficits noted Abdomen: Soft, Non-Tender Skin: No rashes noted on visualized skin Musculoskeletal: No Chest Wall Tenderness Extremities: No Clubbing, No Cyanosis, Normal Pulses, Other (trace edema LLE.) Results 07/30/18 04:42 07/31/18 04:40 Lab Results 07/31/18 04:40 Sodium 140 Potassium 4.0 Chloride 102 Carbon Dioxide 33 H BUN 15 Creatinine 0.89 Glucose 141 H Calcium 9.0 Magnesium 2.0 - Imaging and Cardiology Echo: report reviewed - EKG Interpretation EKG results cardiology: personally reviewed Consult Discharge Plan - Plan Referrals: Abrahan Pleitez MD [Primary Care Provider] -
--- NOTE | 2018-07-31 15:51 | Electrocardiograph Report ---
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
[2018-07-31] MEDS: *HR* Digoxin 0.5 MG/2 ML AMPUL IVP SCH (18:03)
[2018-07-31] MEDS ORDERED: *HR* Metoprolol 5 MG/5 ML VIAL IVP ONE (20:25)
[2018-07-31] MEDS ORDERED: Levalbuterol Neb 0.63 MG/3 ML IH SCH (22:00)
[2018-07-31] MEDS: ALPRAZolam 1 MG TABLET PO SCH (22:50)
[2018-08-01] MEDS: *HR* Digoxin 0.5 MG/2 ML AMPUL IVP SCH (00:10)
[2018-08-01] MEDS: *HR* Heparin 5,000 UNIT/ML VIAL SQ SCH ×2 (06:17→15:33)
[2018-08-01] MEDS: Levalbuterol Neb 0.63 MG/3 ML IH PRN ×2 (07:51→15:30)
[2018-08-01] MEDS: FORMOTEROL FUMARATE IH SCH (07:52)
[2018-08-01] MEDS: Budesonide Neb 0.5 MG/2 ML IH SCH (08:05)
[2018-08-01] MEDS: Tiotropium 18 MCG inhalation IH SCH (08:19)
[2018-08-01] MEDS ORDERED: Diltiazem CD (24hr) 180 MG CAPSULE PO SCH (09:00)
[2018-08-01] MEDS: Aspirin Enteric Coated 81 MG Tablet PO SCH (09:51)
[2018-08-01] MEDS: predniSONE 20 MG TABLET PO SCH (09:51)
[2018-08-01] MEDS: Metoprolol XL (24 HR) Succ 50 MG TAB.ER.24H PO SCH (09:51)
--- NOTE | 2018-08-01 10:44 | Cardiology Progress Note ---
Date of Encounter: 08/01/18 Time of Encounter: 10:42 Assessment and Plan (1) Atrial flutter with rapid ventricular response Current Visit: Yes Status: Acute Pt presents with elevated HR in the setting of COPD exacerbation. On initial presentation he is seen to have atrial tachycardia. Telemetry review shows sinus tachycardia converting to atrial flutter with RVR. Remains in atrial flutter. No prior history of atrial flutter. TTE was a poor study due to tachycardia. Repeat when HR improved. We will repeat today. TSH 3.177. Current tx: Metoprolol 50 mg daily increased from home dose. Cardizem 120 mg daily. IV digoxin loading given. Assessment: HR now 70-80. AVG 100 over 12 hours. Plan: Discussed with Dr. Coulter. We will in increase cardizem to 180 mg daily. No plan to start oral digoxin. Blood pressure improved. Continue metoprolol. Repeat TTE. In regards to long winder tender AC he c/o significant hemoptysis with recent addition of asa 81 mg daily. He also had hemoptysis with asa six years ago with pulmonary work-up. He would not like to try usp AC. Increased risk of stroke reviewed. Continue rate control. He is not a candidate for rhythm control. (2) COPD (chronic obstructive pulmonary disease) Current Visit: Yes Status: Chronic Severe COPD with exacerbation this admit. Management per IM. Qualifiers: COPD type: unspecified COPD Qualified Code(s): J44.9 - Chronic obstructive pulmonary disease, unspecified (3) Elevated troponin Current Visit: Yes Status: Ruled-out Mild adynamic troponin elevation at 0.08 and 0.09x3. No acute ST changes on EKG. Patient did have mild left sided chest discomfort for two days. May be secondary to tachycardia and COPD exacerbation. [facility] in 2015 showed mild non-obstructive CAD. TTE ordered to evaluate further. Discussion w patient/family: The assessment and plan as outlined above was discussed with the patient and/or family members who expressed understanding and agreement. All questions were answered. Thank you for involving us in the care of your patient. Please call with any questions. Subjective Principal diagnosis: atrial flutter Interval history: Mr. Diehl states he is feeling okay today. SOB near baseline. Objective Vital Signs, Last 4 Hours Temp Pulse Resp BP Pulse Ox 08/01/18 08:19 18 99 08/01/18 08:05 18 99 08/01/18 07:52 18 97 08/01/18 07:00 98 F 92 21 114/71 91 General: Conversant, No Apparent Distress HEENT: Atraumatic, Normocephaly, Mucus Membranes Moist Neck: No JVD, Normal carotid pulses Cardiac: Other (atrial flutter, irregular) Lungs: Normal Breath Sounds, Other (faint wheezes) Neuro: Alert and responsive, No focal deficits noted Abdomen: Soft, Non-Tender Skin: No rashes noted on visualized skin Musculoskeletal: No Chest Wall Tenderness Extremities: No Clubbing, No Cyanosis, Normal Pulses, Other (Trace edema LLE) Results 07/30/18 04:42 07/31/18 04:40 - Imaging and Cardiology Echo: pending, report reviewed - EKG Interpretation EKG results cardiology: personally reviewed Consult Discharge Plan - Plan Referrals: Abrahan Pleitez MD [Primary Care Provider] -
--- NOTE | 2018-08-01 12:25 | Discharge Summary ---
Orders not resulted at time of discharge: Pending orders 08/01/18 09:11 EV limited echo w enhance Routine Date of Encounter: 08/01/18 Time of Encounter: 12:25 - Discharge Diagnosis (1) Atrial flutter with rapid ventricular response Priority: Primary Status: Resolved (2) BETHANY on CPAP Priority: Secondary Status: Chronic (3) COPD (chronic obstructive pulmonary disease) Priority: Secondary Status: Chronic Qualifiers: COPD type: unspecified COPD Qualified Code(s): J44.9 - Chronic obstructive pulmonary disease, unspecified (4) Chronic hypoxemic respiratory failure Priority: Secondary Status: Chronic (5) HLD (hyperlipidemia) Priority: Secondary Status: Chronic Qualifiers: Hyperlipidemia type: unspecified Qualified Code(s): E78.5 - Hyperlipidemia, unspecified (6) HTN (hypertension) Priority: Secondary Status: Chronic Qualifiers: Hypertension type: unspecified Qualified Code(s): I10 - Essential (primary) hypertension (7) Elevated troponin Priority: Secondary Status: Ruled-out Hospital course: Mr. Diehl is a 78 year old male PMH of stage IV COPD on 3 litters of home O2, BETHANY, HTN, PSVT, HTN and HLD. Patient presented to the ED due to palpitation. Patient reports that for the past 3 days his heart rate has been in the 130s, he did not come to the ED sooner because he thought it would come down. In the ED patient found to be on Atrial flutter with rapid ventricular response. Patient was started on a cardizem drip, and started on oral bb and cardizem. Due to hypotension on cardizem drip, the patient was loaded with digoxin with successful rate control. Cardiology evaluated the patient and recommended to be discharged on a bb and diltiazem. Patient was not started on anticoagulation due to a hx of GI bleed, no aspirin due to history of epistaxis. Patient recommended to follow up with cardiology within a week of hospital discharge. - Time Spent with Patient Total time spent providing and/or coordinating discharge services: Time spent: Greater than 30 minutes (35) - Discharge Medications Prescriptions: New Diltiazem CD (24hr) [Cardizem CD] 180 mg PO DAILY 30 Days #30 cap.er.24h Metoprolol XL (24 HR) Succ [Toprol Xl] 50 mg PO DAILY 30 Days #30 tab.er.24h Diltiazem HCl [Diltiazem 24Hr Cd] 180 mg PO DAILY 30 Days #30 cap.er.24h Metoprolol XL (24 HR) Succ [Toprol Xl] 50 mg PO DAILY 30 Days #30 tab.er.24h Continued Doxazosin Mesylate [Cardura] 2 mg PO DAILY ALPRAZolam [Xanax 1 MG Tablet] 1 mg PO HS Pantoprazole Sodium 40 mg PO BID Pravastatin Sodium [Pravachol] 40 mg PO DAILY Tiotropium Herrin [Spiriva Respimat] 1 puff IH Q12H Levalbuterol Neb [Xopenex Neb] 1 mg IH Q4H PRN PRN Reason: sob Formoterol Fumarate [Perforomist] 2 ml IH Q12H Budesonide Neb [Pulmicort Neb] 0.5 mg IH Q12H Oxygen 2 l IH DAILY Mirabegron [Myrbetriq] 50 mg PO DAILY Discontinued Lisinopril [Zestril] 10 mg PO DAILY Metoprolol [Lopressor] 25 mg PO BID Home Medications: ALPRAZolam [Xanax 1 MG Tablet] 1 mg PO HS 02/09/18 [History] Budesonide Neb [Pulmicort Neb] 0.5 mg IH Q12H 02/09/18 [History] Doxazosin Mesylate [Cardura] 2 mg PO DAILY 02/09/18 [History] Formoterol Fumarate [Perforomist] 2 ml IH Q12H 02/09/18 [History] Levalbuterol Neb [Xopenex Neb] 1 mg IH Q4H PRN 02/09/18 [History] Oxygen 2 l IH DAILY 02/09/18 [History] Pantoprazole Sodium 40 mg PO BID 02/09/18 [History] Pravastatin Sodium [Pravachol] 40 mg PO DAILY 02/09/18 [History] Tiotropium Herrin [Spiriva Respimat] 1 puff IH Q12H 02/09/18 [History] Mirabegron [Myrbetriq] 50 mg PO DAILY 07/29/18 [History] Diltiazem CD (24hr) [Cardizem CD] 180 mg PO DAILY 30 Days #30 cap.er.24h 08/01/18 [Rx] Diltiazem HCl [Diltiazem 24Hr Cd] 180 mg PO DAILY 30 Days #30 cap.er.24h 08/01/18 [Rx] Metoprolol XL (24 HR) Succ [Toprol Xl] 50 mg PO DAILY 30 Days #30 tab.er.24h 08/01/18 [Rx] Metoprolol XL (24 HR) Succ [Toprol Xl] 50 mg PO DAILY 30 Days #30 tab.er.24h 08/01/18 [Rx] Allergies/Adverse Reactions: Allergy/AdvReac Type Severity Reaction Status Date / Time No Known Allergies Allergy Verified 02/09/18 10:19 Date of admission: 07/30/18 10:36 Primary care physician: Abrahan Pleitez MD Consults: 07/29/18 16:08 Consult to Cardiology [CONS] Stat Comment: Consulting Provider: Cardiology Maricarmen Reason for Consult: aflutter with RVR Time Notified: 16:09 Call Completed: Yes 07/29/18 18:21 Consult to Artifacts Conservator [CONS] Routine Reason for SW Consult: has home o2 @ 3L - Constitutional Vitals: Temp Pulse Resp BP Pulse Ox 97.6 F 73 18 110/78 92 08/01/18 11:51 08/01/18 11:51 08/01/18 11:51 08/01/18 11:51 08/01/18 11:51 Exam: Vitals: Reviewed General: Alert and oriented x4. In no distress Cardiovascular: Irregularly irregular, normal S1 & S2, no rubs, murmurs or gallops. Lungs: Decreased breath sounds b/l, minimal b/l expiratory wheezes, no rales or crackles. Abdomen: Obese, soft, non-tender, no rigidity. NABS in all 4 quadrants Extremities: 1+ pitting edema in the left foot. Neurological: No focal neurological abnormalities Rest of the physical exam is non contributory - Patient Status Disposition: Home, Self-Care Condition: Fair Functional capacity at discharge: independent ambulation Overall status at discharge: patient is back to baseline - Discharge Instructions Follow Up With: Abrahan Pleitez MD [Primary Care Provider] - - Diet and Activity Activity: wear oxygen at all times (3 litters ) Diet: low salt diet
[2018-08-01 16:10] VITALS: BP 122/70
== END 2018-08-01 17:46 | disposition home or self-care (01) | DRG 309 ==
LOC: 2NENU 15:06 → EMEROOARM 15:06 → 2NENU 17:59 → SUATTDRO 07-30 10:36
PROVIDERS: ADMIT Internal Medicine; ATTEND Internal Medicine